=== PATIENT | female | born 1985 | race African-American/Black ===

== ENCOUNTER 2016-11-23 23:14 | Emergency (ER) | payer OTHER ==
[2016-11-24 00:36] VITALS: BP 128/78
[2016-11-24] MEDS ORDERED: Tetan/Diph/Pertus SYR(Tdap)* 0.5 ML SYR(BOOSTRIX) use SYR IM ONE (01:24)
--- NOTE | 2016-11-24 01:25 | ED ---
Laceration/Wound HPI - HPI Summary HPI Summary: 31F presents with left middle finger superficial laceration. 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 the laceration is below her finger nail. She did clean it with soap and water. She states her last tetanus was 20 years ago. - History of Current Complaint Stated Complaint: RT MIDDLE FINGER LAC Time Seen by Provider: 11/24/16 01:04 Pain Intensity: 0 - Allergy/Home Medications Allergies/Adverse Reactions: Allergies Allergy/AdvReac Type Severity Reaction Status Date / Time cats Allergy Unknown Uncoded 11/24/16 01:24 Reaction Details dust Allergy Unknown Uncoded 11/24/16 01:24 Reaction Details seasonal Allergy Unknown Uncoded 11/24/16 01:24 Reaction Details PMH/Surg Hx/FS Hx/Imm Hx Endocrine/Hematology History: Denies: Hx Anticoagulant Therapy Respiratory History: Denies: Hx Asthma Infectious Disease History: Denies: Traveled Outside the [place] in Last 30 Days - Family History Known Family History: Positive: Cardiac Disease - Social History Alcohol Use: Occasionally Substance Use Type: Reports: None Smoking Status (MU): Never Smoked Tobacco Review of Systems Negative: Fever Negative: Chest Pain Negative: Shortness Of Breath Positive: Other - abrasion All Other Systems Reviewed And Are Negative: Yes Physical Exam Triage Information Reviewed: Yes Vital Signs On Initial Exam: Initial Vitals Temp Pulse Resp BP 98.3 F 76 16 129/85 11/23/16 23:15 11/23/16 23:15 11/23/16 23:15 11/23/16 23:15 Vital Signs Reviewed: Yes Appearance: Positive: Well-Appearing Skin: Positive: Other - superifical abrasion left middle finger 1/4 cm near end of nail Head/Face: Positive: Normal Head/Face Inspection Eyes: Positive: Normal, Conjunctiva Clear Respiratory/Lung Sounds: Positive: Clear to Auscultation, Breath Sounds Present Cardiovascular: Positive: Normal, RRR Musculoskeletal: Positive: Strength/ROM Intact - left middle finger Diagnostics - Vital Signs Vital Signs Temp Pulse Resp BP Pulse Ox 11/24/16 00:36 98.4 F 83 19 128/78 98 11/23/16 23:15 98.3 F 76 16 129/85 - Laboratory Lab Statement: Any lab studies that have been ordered have been reviewed, and results considered in the medical decision making process. Laceration Repair Course/Dx - Course Course Of Treatment: 31F presents with left middle finger superficial laceration. 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 the laceration is below her finger nail. She did clean it with soap and water. She states her last tetanus was 20 years ago. left middle finger has small abrasion which cleaned: no need for sutures or glue. gave tetanus. warned of signs of infection to return. patient understands and agrees with plan. - Differential Dx Differental Diagnoses: Abrasion, Avulsion, Laceration - Clinical Impression Provider Diagnoses: Laceration of finger Discharge - Discharge Plan Condition: Good Disposition: HOME Referrals: No Primary Care Phys,NOPCP [Primary Care Provider] - Additional Instructions: Wash with soap and water Return to ED if develop any spreading redness, or fever or any new or worsening symptoms
== END 2016-11-24 01:41 | disposition home or self-care (01) ==
LOC: ED 23:14
DX: S61.212A Laceration without foreign body of right middle finger without damage to nail, initial encounter (principal); X58.XXXA Exposure to other specified factors, initial encounter; Y93.9 Activity, unspecified; Y92.9 Unspecified place or not applicable
CPT/HCPCS: 90715; 96372; 99281